=== PATIENT | male | born 1980 | race American Indian/Alaskan Native ===

== ENCOUNTER 2018-04-05 17:57 | Inpatient (IN) | payer OTHER ==
[2018-04-05] MEDS ORDERED: NORCO 10/325 PO ONE (18:53)
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
[2018-04-05] MEDS ORDERED: ZOFRAN IV ONE (19:16)
[2018-04-05 19:21] LABS: Hematocrit 31.7 % (35.5-45.6); Hemoglobin 10.5 gm/dl (11.8-15.2); Mean Corpuscular HGB Conc 33 % (32-34); Mean Corpuscular Hemoglobin 31 pg (28-32); Mean Corpuscular Volume 92 fl (84-94); Platelet Count 221 K/mm3 (140-440); Red Blood Count 3.46 M/mm3 (3.65-5.03); Red Cell Distribution Width 12.9 % (13.2-15.2)
[2018-04-05] MEDS: MORPHINE IV PRN ×2 (19:31→20:22)
[2018-04-05 19:46] LABS: Alanine Aminotransferase 28 units/L (7-56); Albumin 4.2 g/dL (3.9-5); BUN/Creatinine Ratio 11; Blood Urea Nitrogen 9 mg/dL (9-20); Calcium 9.6 mg/dL (8.4-10.2); Hemolysis Index 1
[2018-04-05] MEDS: D5W/0.45% NACL/KCL 20 MEQ 20 MEQ/1,000 ML BAG IV SCH (19:46)
--- NOTE | 2018-04-05 19:55 | XRay Report ---
FINAL REPORT PROCEDURE: XR TIBIA FIBULA 2V RT TECHNIQUE: RIGHT tibia and fibula radiographs, AP and lateral views. CPT 65103 HISTORY: leg injury COMPARISON: No prior studies are available for comparison. FINDINGS: Comminuted moderately displaced fracture of the proximal half of the tibia is visualized. There is intra-articular extension of fracture lines to the lateral tibial plateau. The lateral tibial plateau is disrupted and appears depressed. The medial tibial plateau appears intact. Distal femur appears intact. Nondisplaced fracture of the proximal fibula also visualized. Diffuse soft tissue swelling is seen. IMPRESSION: Comminuted moderately displaced fracture of the proximal half of the tibia is visualized with intra-articular extension of the lateral tibial plateau. The lateral tibial plateau is disrupted in appears depressed. Medial tibial plateau appears intact. Nondisplaced fracture proximal fibula appears to be present..
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
[2018-04-05] MEDS ORDERED: ZOFRAN IV PRN (20:01)
[2018-04-05] MEDS ORDERED: TYLENOL PO PRN (20:01)
[2018-04-05] MEDS ORDERED: PROVENTIL IH PRN (20:01)
[2018-04-05] MEDS ORDERED: SODIUM CHLORIDE FLUSH SYRINGE 10 ML IV PRN (20:01)
--- NOTE | 2018-04-05 21:01 | XRay Report ---
FINAL REPORT PROCEDURE: XR CHEST 1V AP TECHNIQUE: Chest radiograph anteroposterior view. CPT 61703 HISTORY: pre-op COMPARISON: No prior studies are available for comparison. FINDINGS: The heart is magnified due to projection appears to be normal size. Pulmonary vasculature is not distended. Lungs are hypoventilated. There is some crowding of the bronchovascular markings in the bases. No focal infiltrates masses effusions or pneumothorax are visualized. No acute bony abnormalities are identified. IMPRESSION: Lungs are mildly hypoventilated otherwise negative exam..
--- NOTE | 2018-04-05 21:16 | Cat Scan Report ---
FINAL REPORT PROCEDURE: CT LOWER EXTREMITY RT WO CON TECHNIQUE: Computerized axial tomography of the RIGHT tibia and fibula was performed without contrast. HISTORY: tibial plateau fracture eval COMPARISON: No prior studies are available for comparison. FINDINGS: There is a moderately comminuted fracture fracture of the proximal half of the tibia. Fragments are mildly displaced anteriorly and posteriorly as well as medially. Fracture line extends to the lateral tibial plateau also extends to the lateral tibial spine. The lateral tibial plateau is comminuted as well. Fracture fragments are mildly displaced inferiorly. One of the fragments is mildly rotated counter clockwise in the central aspect of the fracture site. 4 millimeter fragment of cortex is located between the largest lateral fragment and the remainder of the fragments at the level of the lateral tibial articular surface. Medial tibial plateau is intact. There is a nondisplaced fracture visualized through the proximal fibula. No other fractures are there is no evidence of dislocation.. IMPRESSION: Moderately comminuted fracture proximal half of the tibia with intra-articular extension lateral tibial plateau with displacement and mild rotation as described. Please see above comments. Medial tibial plateau is intact. Nondisplaced fracture proximal fibula appear
[2018-04-05] MEDS: SODIUM CHLORIDE FLUSH SYRINGE 10 ML IV SCH (23:07)
[2018-04-06] MEDS: D5W/0.45% NACL/KCL 20 MEQ 20 MEQ/1,000 ML BAG IV SCH ×3 (04:04→23:01)
[2018-04-06] MEDS: MORPHINE IV PRN ×5 (04:32→21:54)
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
[2018-04-06] MEDS: SODIUM CHLORIDE FLUSH SYRINGE 10 ML IV SCH ×2 (12:30→22:04)
[2018-04-06] MEDS ORDERED: ATIVAN IV PRN (16:14)
[2018-04-06] MEDS ORDERED: ATIVAN PO PRN (16:14)
[2018-04-06] MEDS: FOLVITE PO SCH (16:56)
[2018-04-06] MEDS: VITAMIN B-1 PO SCH (16:56)
[2018-04-06] MEDS: PERCOCET 5/325 PO PRN (20:27)
[2018-04-07] MEDS: MORPHINE IV PRN ×5 (04:04→21:44)
[2018-04-07] MEDS: D5W/0.45% NACL/KCL 20 MEQ 20 MEQ/1,000 ML BAG IV SCH ×2 (07:16→18:07)
[2018-04-07] MEDS: PERCOCET 5/325 PO PRN (07:19)
[2018-04-07] MEDS: VITAMIN B-1 PO SCH ×2 (08:48→10:07)
[2018-04-07] MEDS: FOLVITE PO SCH (10:16)
[2018-04-07] MEDS: SODIUM CHLORIDE FLUSH SYRINGE 10 ML IV SCH ×2 (10:16→21:32)
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
[2018-04-08] MEDS: D5W/0.45% NACL/KCL 20 MEQ 20 MEQ/1,000 ML BAG IV SCH ×2 (01:57→09:55)
[2018-04-08] MEDS: MORPHINE IV PRN ×3 (03:47→12:10)
[2018-04-08] MEDS: VITAMIN B-1 PO SCH (09:59)
[2018-04-08] MEDS: FOLVITE PO SCH (09:59)
[2018-04-08] MEDS: SODIUM CHLORIDE FLUSH SYRINGE 10 ML IV SCH ×2 (09:59→23:07)
[2018-04-08] MEDS ORDERED: DEMEROL IV PRN (13:54)
[2018-04-08] MEDS ORDERED: NARCAN 0.4 MG/1 ML IV PRN (13:54)
[2018-04-08] MEDS ORDERED: TORADOL IV PRN (13:54)
[2018-04-08] MEDS ORDERED: DILAUDID IV PRN (13:54)
[2018-04-08] MEDS ORDERED: ZOFRAN IV PRN (13:54)
[2018-04-08] MEDS ORDERED: ZOFRAN IV NR (14:00)
[2018-04-08] MEDS ORDERED: VERSED IV NR (14:00)
[2018-04-08] MEDS ORDERED: DILAUDID IV ONE (14:00)
[2018-04-08] MEDS: LACTATED RINGERS 1,000 ML IV SCH (14:10)
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
--- NOTE | 2018-04-08 14:34 | Anesthesia Day of Surgery ---
Anesthesia Day of Surgery - Day of Surgery Patient Examined: Yes Patient H&P Reviewed: Yes Patient is NPO: Yes
[2018-04-08] MEDS ORDERED: ANCEF/STERILE WATER 2 GM/20 ML IV NR (15:00)
[2018-04-08] MEDS ORDERED: SUBLIMAZE ONE ×2 (15:41→15:52)
[2018-04-08] MEDS ORDERED: XYLOCAINE MPF 2% ONE (15:41)
[2018-04-08] MEDS ORDERED: DIPRIVAN 10 MG/ML IV ONE (15:41)
[2018-04-08] MEDS ORDERED: LACTATED RINGERS 1,000 ML ONE ×2 (17:13→19:17)
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
[2018-04-08] MEDS ORDERED: MORPHINE ONE (19:03)
[2018-04-08] MEDS ORDERED: NACL 0.9% 250ML 250 ML ONE (19:03)
[2018-04-08] MEDS ORDERED: MARCAINE 0.5% 30 ML INFILTRATI ONE (19:03)
[2018-04-08] MEDS ORDERED: DILAUDID ONE (19:16)
[2018-04-08] MEDS ORDERED: ZOFRAN ONE (19:17)
[2018-04-08] MEDS: DILAUDID IV PRN ×4 (20:08→20:47)
--- NOTE | 2018-04-08 20:42 | Procedure Note ---
Date of procedure: 04/08/18 Pre-op diagnosis: comminuted intra-articular right lateral tibial plateau fracture Post-op diagnosis: same Procedure: Open reduction internal fixation right tibial plateau fracture with allograft bone grafting Procedure The patient was brought to the office and are table in supine position following induction and intubation by anesthesia the patient's right lower extremity was prepped and draped in the usual sterile manner. A timeout procedure was done to identify the patient and the correct operative site. With the knee flexed on a triangular post A midline incision was made and carried upward towards the patella and down distally along the shaft of the tibia this was then taken down sharply to skin and subcutaneous the fracture site was explored the patient was noted to have a severely comminuted proximal tibial shaft that extended distally toward the distal third region the articular surface was explored using a lateral parapatellar incision patient was noted to have severe comminution with impacted fragments distally A bone window was created using 2.7 drill bit following this in using a bone tamp the bony fragments were elevated back towards the joint line and this left a large cavity in the proximal tibia that was filled with cortical cancellus bone graft of the allograft variety. Next the comminuted fragments were reduced and using an interfragmentary compression the screws were applied again under C-arm direction after temporary stable fixation a long lateral locking plate was applied to the proximal tibia and extended down below the level of the fracturea combination of locked and nonlocked screws were used to secure the plate to the bone again AP and lateral views were obtained and showed good reduction of the fracture fragments and orthodoxy of the joint line as much as possible following this the wound was copiously irrigated and was closed primarily. Postoperative dressings were applied as well as a postop knee immobilizer patient tolerated the procedure there were no complications and he was sent to postanesthesia recovery in stable condition Anesthesia: GETA Surgeon: SARIAH DEAN Estimated blood loss: other (300 mL) Condition: stable Disposition: PACU
[2018-04-08] MEDS ORDERED: SODIUM CHLORIDE FLUSH SYRINGE 10 ML IV NR (21:00)
--- NOTE | 2018-04-08 21:05 | Post Anesthesia Evaluation ---
- Post Anesthesia Evaluation Patient Participated: Yes Airway Patent: Yes Stable Respiratory Function: Yes Nausea/Vomiting: No Temp > 96.8F: Yes Pain Manageable: Yes Adequeate Hydration: Yes Anesthesia Complications: No Block Receding Appropriately: Not Applicable Patient on Ventilator: No
[2018-04-09] MEDS: ANCEF/NS 1 GM/50 ML 1 GM/50 ML BAG IV SCH ×2 (02:02→08:42)
[2018-04-09] MEDS: MORPHINE IV PRN (02:03)
[2018-04-09] MEDS: LACTATED RINGERS 1,000 ML IV SCH ×2 (05:27→14:55)
[2018-04-09] MEDS: PERCOCET 5/325 PO PRN ×2 (08:30→21:41)
[2018-04-09] MEDS: ATIVAN PO PRN ×2 (08:42→21:41)
[2018-04-09] MEDS: FOLVITE PO SCH (11:00)
[2018-04-09] MEDS: VITAMIN B-1 PO SCH (11:00)
[2018-04-09] MEDS: SODIUM CHLORIDE FLUSH SYRINGE 10 ML IV SCH ×2 (11:00→22:40)
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
[2018-04-10] MEDS: LACTATED RINGERS 1,000 ML IV SCH ×2 (05:36→17:49)
[2018-04-10] MEDS: ATIVAN PO PRN ×3 (05:37→17:50)
[2018-04-10] MEDS: PERCOCET 5/325 PO PRN ×3 (05:37→17:49)
--- NOTE | 2018-04-10 11:05 | XRay Report ---
RIGHT TIBIA/FIBULA: History: Right lateral tibial plateau fracture AP and lateral fluoroscopic images of the proximal right tibia and fibula were acquired during surgery which demonstrate internal fixation of a comminuted lateral tibial plateau fracture. Please correlate with the procedural report as needed. IMPRESSION: Open reduction and internal fixation of a tibial plateau fracture.
[2018-04-10] MEDS: FOLVITE PO SCH (11:52)
[2018-04-10] MEDS: VITAMIN B-1 PO SCH (11:52)
[2018-04-10] MEDS: SODIUM CHLORIDE FLUSH SYRINGE 10 ML IV SCH (11:53)
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
--- NOTE | 2018-04-10 12:41 | Progress Note ---
Assessment and Plan severely comminuted right tibial plateau and shaft fx s/p ORIF right tibia doing ok otherwise patient encouraged to participate with PT and get out of bed BID Subjective Date of service: 04/10/18 Interval history: c/o right leg pain Objective Vital signs: Vital Signs - 12hr 04/10/18 07:53 Temperature 98.1 F Pulse Rate 88 Respiratory 18 Rate Blood Pressure 113/50 O2 Sat by Pulse 99 Oximetry Narrative Exam: Right leg - post op dressing removed, moderate swelling, compartments soft, moderate drainage on dressing, no sign of infection - Labs CBC & BMP: 04/05/18 19:09 04/05/18 19:09
[2018-04-11] MEDS: ATIVAN PO PRN ×2 (00:13→10:40)
[2018-04-11] MEDS: PERCOCET 5/325 PO PRN ×4 (00:13→23:01)
[2018-04-11] MEDS: SODIUM CHLORIDE FLUSH SYRINGE 10 ML IV SCH ×3 (00:20→21:37)
[2018-04-11] MEDS: LACTATED RINGERS 1,000 ML IV SCH ×2 (03:43→20:47)
[2018-04-11 07:06] LABS: Basophils % (Auto) 0.2 % (0.0-1.8); Eosinophils # (Auto) 0.3 K/mm3 (0.0-0.4); Eosinophils % (Auto) 2.5 % (0.0-4.3); Hematocrit 21.4 % (35.5-45.6); Lymphocytes # (Auto) 1.3 K/mm3 (1.2-5.4); Lymphocytes % (Auto) 10.2 % (13.4-35.0); Mean Corpuscular HGB Conc 33 % (32-34); Mean Corpuscular Hemoglobin 31 pg (28-32); Mean Corpuscular Volume 93 fl (84-94); Monocytes # (Auto) 1.9 K/mm3 (0.0-0.8); Monocytes % (Auto) 15.6 % (0.0-7.3); Platelet Count 309 K/mm3 (140-440); Red Cell Distribution Width 12.4 % (13.2-15.2)
[2018-04-11 07:29] LABS: BUN/Creatinine Ratio 10; Blood Urea Nitrogen 7 mg/dL (9-20); Calcium 8.8 mg/dL (8.4-10.2); Hemolysis Index 1
[2018-04-11] MEDS: VITAMIN B-1 PO SCH (10:40)
[2018-04-11] MEDS: FOLVITE PO SCH (10:40)
[2018-04-11] MEDS: D5W/0.45% NACL/KCL 20 MEQ 20 MEQ/1,000 ML BAG IV SCH (17:10)
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
[2018-04-11] MEDS: LOVENOX SUB-Q SCH (21:35)
[2018-04-12] MEDS ORDERED: ATIVAN PO NR (02:30)
[2018-04-12] MEDS: PERCOCET 5/325 PO PRN ×5 (02:53→22:11)
[2018-04-12] MEDS: LACTATED RINGERS 1,000 ML IV SCH ×2 (02:57→12:57)
[2018-04-12] MEDS: VITAMIN B-1 PO SCH ×2 (08:39→10:00)
[2018-04-12] MEDS: FOLVITE PO SCH ×2 (08:40→10:00)
[2018-04-12] MEDS: SODIUM CHLORIDE FLUSH SYRINGE 10 ML IV SCH ×2 (10:00→21:49)
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
[2018-04-12] MEDS: LOVENOX SUB-Q SCH (21:48)
[2018-04-13] MEDS: PERCOCET 5/325 PO PRN ×5 (02:27→20:09)
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
[2018-04-13] MEDS: FOLVITE PO SCH (09:23)
[2018-04-13] MEDS: VITAMIN B-1 PO SCH (09:23)
[2018-04-13] MEDS: SODIUM CHLORIDE FLUSH SYRINGE 10 ML IV SCH (10:00)
[2018-04-14] MEDS: PERCOCET 5/325 PO PRN ×3 (00:33→09:31)
[2018-04-14] MEDS: LOVENOX SUB-Q SCH (00:34)
[2018-04-14] MEDS: SODIUM CHLORIDE FLUSH SYRINGE 10 ML IV SCH ×2 (02:27→09:32)
[2018-04-14] MEDS: FOLVITE PO SCH (09:32)
[2018-04-14] MEDS: VITAMIN B-1 PO SCH (09:32)
[2018-04-14 11:32] VITALS: BP 115/58
--- NOTE | 2018-04-15 08:29 | XRay Report ---
Right tibia: Postoperative examination. A metallic plate on the lateral side of the tibia extends from the plateau to the mid tibia with numerous transverse screws as well as orthogonal screws placed through the comminuted tibial fractures. Mild separation is noted involving several of the fragments however they are all well aligned. The lateral tibial plateau also demonstrates mild separation of some fragments. There is good alignment of the femur with the tibia. There is generalized swelling of the soft tissues. Impression: Surgical hardware fixation of comminuted tibial fracture.
== END 2018-04-14 14:00 | disposition home or self-care (01) | DRG 493 ==
LOC: ED 17:57 → 3B-SURG 20:01
PROVIDERS: ADMIT Internal Medicine; ATTEND Internal Medicine
PROC: 0QSG04Z Reposition Right Tibia with Internal Fixation Device, Open Approach (ICD-10-PCS; principal; 2018-04-08)
DX: S82.144A Nondisplaced bicondylar fracture of right tibia, initial encounter for closed fracture (principal); F17.213 Nicotine dependence, cigarettes, with withdrawal; Y04.8XXA Assault by other bodily force, initial encounter; F10.20 Alcohol dependence, uncomplicated; Y93.89 Activity, other specified; Y92.89 Other specified places as the place of occurrence of the external cause; Y99.8 Other external cause status; Z71.6 Tobacco abuse counseling
CPT/HCPCS: 36415; 71045; 80048; 80053; 85025; 85027; 86850; 86900; 86901; 93005; 93010; 96374; 99406; C1713; C1769; J0690; J1170; J1650; J1885; J2250; J2270; J2405; J2704; J3010; J7050; J7120

== ENCOUNTER 2020-08-23 07:10 | Emergency (ER) | payer SELFPAY ==
[2020-08-23 09:16] VITALS: BP 138/86
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
== END 2020-08-23 16:10 | disposition home or self-care (01) ==
LOC: ED 07:10
DX: F10.921 Alcohol use, unspecified with intoxication delirium (principal); F17.200 Nicotine dependence, unspecified, uncomplicated; Z79.899 Other long term (current) drug therapy
CPT/HCPCS: 82962